=== PATIENT | female | born 1930 | race Caucasian/White ===

== ENCOUNTER 2017-03-13 06:03 | Day surgery (SDC) | payer MEDICARE ==
--- NOTE | ~2017-03-13 | EGD ---
EGD REPORT [facility] [address] [address] NAME: ESTEBAN GRACE : [birth year] STATUS : [facility] PAT#: [id number] AGE: 86 ADM/REG DATE : 03/13/17 MR#: [id number] REPORT SERV DATE: 03/13/17 DICTATED BY: NIKI PAT DATE: 03/13/17 REPORT STATUS : Draft TRANSCRIBED BY: [employer] DATE: 03/13/17 [facility] Center Patient Name: Esteban Grace Date of : 1930 Attending MD: NIKI PAT MD Procedure Date No Time: 03/13/2017 Procedure: Upper GI endoscopy Indications: Dysphagia, Unexplained chest pain Referring MD: ANIYA SANCHEZ MD Medicines: as per anesthesia Complications: No immediate complications. Procedure: After obtaining informed consent, the endoscope was passed under direct vision. Throughout the procedure, the patient's blood pressure, pulse, and oxygen saturations were monitored continuously. The GIF [id number] was introduced through the mouth, and advanced to the third part of duodenum. The upper GI endoscopy was accomplished without difficulty. The patient tolerated the procedure. Findings: A prior Tico fundoplication was found at the gastroesophageal junction. This was characterized by healthy appearing mucosa and an intact appearance. The scope was withdrawn. Dilation was performed with a Rodriguez dilator with no resistance at 44 Fr. One non-bleeding cratered gastric ulcer with no stigmata of bleeding was found in the gastric antrum. The lesion was 5 mm in largest dimension. Biopsies were taken with a cold forceps for histology. The examined duodenum was normal. Impression: - A Tico fundoplication was found. Dilated. - Gastric ulcer with clean base. Biopsied. - Normal examined duodenum. Recommendation: - Await pathology results. - Use Prilosec (omeprazole) 40 mg PO daily. Procedure Code(s): --- Professional --- 77935, Esophagogastroduodenoscopy, flexible, transoral; with biopsy, single or multiple 62681, Dilation of esophagus, by unguided sound or bougie, single or multiple passes Diagnosis Code(s): --- Professional --- Z98.0, Intestinal bypass and anastomosis status EGD REPORT [place] [address] [place]. [address] NAME: ESTEBAN GRACE : [birth year] STATUS : [facility] PAT#: [id number] AGE: 86 ADM/REG DATE : 03/13/17 MR#: [id number] REPORT SERV DATE: 03/13/17 DICTATED BY: NKII PAT. DATE: 03/13/17 REPORT STATUS : Draft TRANSCRIBED BY: [employer] DATE: 03/13/17 K25.9, Gastric ulcer, unspecified as acute or chronic, without hemorrhage or perforation R13.10, Dysphagia, unspecified R07.9, Chest pain, unspecified CPT copyright 2013 [employer] [place] [employer] [employer]. All rights reserved. The codes documented in this report are preliminary and upon rotary helper review may be revised to meet current compliance requirements. NIKI PAT MD 03/13/2017 8:18 AM This report has been signed electronically. Number of Addenda: 0 Note Initiated On: 03/13/2017 7:58 AM Scope Withdrawal Time 0 hours 0 minutes 0 seconds [address] [facility] [place] [address]
[~2017-03-13 06:03] MED LIST: ACET500CAP PO; ASAB PO; AUG875 PO; AVAP150 PO; CARD120 PO; CITRACAL PO; D-3 PO; DCN100 PO; DIOV160 PO; FEMARA PO; FORTAMET500 MG PO; GLUCOPHAGE1000 MG PO; GLUCOTRO10 PO; GLUCPH PO; HALF81 PO; INVOKANA300 MG PO; JANUVIA100 MG PO; K-TABS10 MEQ PO; K500 PO; LIOR10 PO; LORTABLIQ PO; LOZOLTAB PO; LYRICA75 PO; MACROBID PO; METANX PO; MOBIC7.5 PO; MONUROL POWDER 33 GM PO; NORV25 PO; NORV5 PO; PRAV10 PO; PREV30 PO; PROAIR HFA INH; PROLOP100 PO; SINGULAIR1 PO; SYMBICORT 160/41 INH INH; TOF25 PO; VENTOLIN HFA INH; VITAMIN B-121000 MC1 SL; VITAMIN D31000 UNIT PO; X25 PO; X5 PO; ZOCOR10 PO; ZYRTEC ALLGY10 MG PO
== END 2017-03-13 23:59 | disposition home or self-care (01) ==
LOC: DMU 06:03
PROVIDERS: Internal Medicine Gastroenterology
PROC: 0D747ZZ Dilation of Esophagogastric Junction, Via Natural or Artificial Opening (ICD-10-PCS; 2017-03-13)
PROC: 0DB68ZX Excision of Stomach, Via Natural or Artificial Opening Endoscopic, Diagnostic (ICD-10-PCS; principal; 2017-03-13 07:00)
DX: K52.9 Noninfective gastroenteritis and colitis, unspecified (principal); R13.10 Dysphagia, unspecified; R07.9 Chest pain, unspecified; I10 Essential (primary) hypertension; I49.9 Cardiac arrhythmia, unspecified; M19.90 Unspecified osteoarthritis, unspecified site; G47.33 Obstructive sleep apnea (adult) (pediatric); E11.9 Type 2 diabetes mellitus without complications; G57.93 Unspecified mononeuropathy of bilateral lower limbs; K21.9 Gastro-esophageal reflux disease without esophagitis; Z99.89 Dependence on other enabling machines and devices; Z98.0 Intestinal bypass and anastomosis status; Z79.899 Other long term (current) drug therapy; Z79.84 Long term (current) use of oral hypoglycemic drugs; Z79.82 Long term (current) use of aspirin; Z88.5 Allergy status to narcotic agent; Z88.8 Allergy status to other drugs, medicaments and biological substances
CPT/HCPCS: 82962; 88305; 88342